=== PATIENT | female | born 1960 | race Caucasian/White ===

== ENCOUNTER 2025-03-27 20:00 | Emergency (ER) | payer BC ==
[2025-03-27] MEDS: Lidocaine 1% with EPINEPHrine 1:100,000 20 ML MDV INJECT ONE (20:20)
[2025-03-27] MEDS: Lidocaine 1% with EPINEPHrine 1:100,000 20 ML MDV ONE (20:31)
[2025-03-27] MEDS: Bacitracin/Neomycin/Polymyxin B Oint 0.9 GM U/D Packet TOP ONE (21:03)
[2025-03-27 21:30] VITALS: BP 159/94; PULSE 78
== END 2025-03-27 21:31 | disposition home or self-care (01) ==
LOC: KA.ED 20:00
DX: S81.811A Laceration without foreign body, right lower leg, initial encounter (principal); I10 Essential (primary) hypertension; E78.00 Pure hypercholesterolemia, unspecified; Z90.710 Acquired absence of both cervix and uterus; Z79.899 Other long term (current) drug therapy; W22.8XXA Striking against or struck by other objects, initial encounter
CPT/HCPCS: 12004; 99283; A9270-GY; J2004